=== PATIENT | female | born 1980 | race Caucasian/White ===

== ENCOUNTER 2023-05-28 13:46 | Outpatient (CLI) | payer OTHER | END 2023-05-28 13:47 | disposition home or self-care (01) | LOC: BICMAMMO 13:46 | PROVIDERS: ATTEND Specialist | DX: N63.10 Unspecified lump in the right breast, unspecified quadrant (principal); N63.20 Unspecified lump in the left breast, unspecified quadrant | CPT/HCPCS: 77066; G0279 ==

== ENCOUNTER 2024-07-06 12:32 | Outpatient (CLI) | payer BC | END 2024-07-06 12:33 | disposition home or self-care (01) | LOC: BICMAMMO 12:32 | PROVIDERS: ATTEND Specialist | DX: Z12.31 Encounter for screening mammogram for malignant neoplasm of breast (principal); N64.89 Other specified disorders of breast; Z80.3 Family history of malignant neoplasm of breast | CPT/HCPCS: 77063; 77067 ==

== ENCOUNTER → 2024-07-25 | Day surgery (SDC) | payer BC | LOC: MAMMO 06:45 | PROVIDERS: ATTEND Specialist | PROC: 0H9U3ZX Drainage of Left Breast, Percutaneous Approach, Diagnostic (ICD-10-PCS; principal; 2024-07-25) | DX: N60.32 Fibrosclerosis of left breast (principal); N64.89 Other specified disorders of breast | CPT/HCPCS: 19081; 76098; 88305; A4648 ==

== ENCOUNTER 2025-01-19 13:36 | Outpatient (CLI) | payer BC | END 2025-01-19 13:37 | disposition home or self-care (01) | LOC: BICMAMMO 13:36 | PROVIDERS: ATTEND Specialist | DX: R92.8 Other abnormal and inconclusive findings on diagnostic imaging of breast (principal) | CPT/HCPCS: G0279 ==

== ENCOUNTER 2025-07-24 12:31 | Outpatient (CLI) | payer BC | END 2025-07-24 12:32 | disposition home or self-care (01) | LOC: CT 12:31 | PROVIDERS: ATTEND Specialist | DX: J18.0 Bronchopneumonia, unspecified organism (principal) | CPT/HCPCS: 71260 ==

== ENCOUNTER 2025-08-03 08:39 | Day surgery (SDC) | payer BC ==
[2025-08-02 16:33] VITALS: BMI 38.5
[2025-08-03] MEDS ORDERED: fentaNYL PF 100 MCG/2 ML SYRINGE ONE (09:42)
[2025-08-03] MEDS ORDERED: PROPOFOL 20 ML ONE (09:42)
[2025-08-03] MEDS ORDERED: GLYCOPYRROLATE/PF 0.2 MG/ML VIAL ONE (09:43)
[2025-08-03] MEDS ORDERED: SUCCINYLCHOLINE/SOD CL,ISO/PF 200 MG/10 ML SYRINGE FS ONE (09:44)
[2025-08-03] MEDS ORDERED: Lidocaine 4% PF 5 ML AMP ONE (09:58)
[2025-08-03] MEDS ORDERED: Ondansetron PF 4 MG/2 ML Vial ONE (10:47)
[2025-08-03] MEDS ORDERED: HYDROcodone/Acetaminophen 5/325 mg Tablet ONE (14:13)
== END 2025-08-03 14:45 | disposition home or self-care (01) ==
LOC: SDC 08:39
PROVIDERS: ATTEND Internal Medicine
DX: R91.1 Solitary pulmonary nodule (principal); I10 Essential (primary) hypertension; F17.200 Nicotine dependence, unspecified, uncomplicated; Z79.899 Other long term (current) drug therapy; Z91.048 Other nonmedicinal substance allergy status; Z88.8 Allergy status to other drugs, medicaments and biological substances
CPT/HCPCS: 87070; 87102; 87116; 87205; 87206; 88104; 88112; 88305; 88341; 88342; 93005; 93010; J1100; J2250; J2704; J3490

== ENCOUNTER 2025-08-23 14:25 | Outpatient (CLI) | payer BC | END 2025-08-23 14:26 | disposition home or self-care (01) | LOC: SCSMRI 14:25 | PROVIDERS: ATTEND Internal Medicine Hematology & Oncology | DX: C34.82 Malignant neoplasm of overlapping sites of left bronchus and lung (principal) | CPT/HCPCS: 70553; 76376 ==

== ENCOUNTER 2025-08-27 08:55 | Emergency (ER) | payer BC ==
[2025-08-27] MEDS ORDERED: Iopamidol-370 76% 500 ML MDV (1 ML CHARGE) ONE (09:30)
[2025-08-27] MEDS ORDERED: Ondansetron PF 4 MG/2 ML Vial ONE (10:12)
[2025-08-27 10:14] LABS: #Basophils 0.06 10x3/uL (0.0-0.2); #Eosinophils 0.08 10x3/uL (0.0-0.7); #Monocytes 0.52 10x3/uL (0.11-0.59); #Neutrophils 10.39 10x3/uL (1.40-6.50); %Basophils 0.5 % (0.0-1.0); %Eosinophils 0.6 % (0.0-10.0); %Lymphocytes 14.6 % (21.0-51.0); %Monocytes 4.0 % (0.0-10.0); %Neutrophils 80.0 % (42.0-75.0); Hematocrit 40.6 % (36.0-47.0); Hemoglobin 13.7 g/dL (12.0-16.0); Mean Corpuscular Hemoglobin 29.0 pg (27.0-31.0); Mean Corpuscular Volume 85.8 fL (78.0-98.0); Platelet Count 276 10x3/uL (130-400); Red Blood Cell (RBC) Count 4.73 mill/uL (4.20-5.40); White Blood Cell (WBC) Count 12.99 10x3/uL (4.8-10.8)
[2025-08-27 10:31] LABS: ALT (SGPT) 14 U/L (Less than 34); AST (SGOT) 18 U/L (11-34); Albumin 3.8 g/dL (3.1-4.5); Alkaline Phosphatase 78 U/L (40-110); Anion Gap 13 mmol/L (10-20); BUN (Urea Nitrogen) 12 mg/dL (7.0-18.7); Bilirubin, Total 0.4 mg/dL (0.3-1.2); Calc. Creatinine Clearance 0 mL/min (70-130); Calcium 9.0 mg/dL (7.8-10.44); Carbon Dioxide 24 mmol/L (22-29); Chloride 104 mmol/L (98-107); Globulin 2.7 g/dL (2.4-3.5); Glucose 108 mg/dL (70-105); Lipase 18 U/L (8-78); Potassium 3.7 mmol/L (3.5-5.1); Sodium 137 mmol/L (136-145)
[2025-08-27 11:19] LABS: Bacteria/HPF None Seen HPF (None Seen); CAUTI Indications for Culture Dysuria,urgency,freq; Glucose, Urine (Dipstick) Normal (Negative); Leukocyte Negative Leu/uL (Negative); Protein, Urine (Dipstick) Negative (Neg-Trace); RBC/HPF 0-3 HPF (0-3); Specific Gravity, Urine 1.010 (1.002-1.036); Urine Culture Reflex No No; WBC/HPF 0-3 HPF (0-3)
[2025-08-27] MEDS ORDERED: Mineral Oil ENEMA ONE (12:12)
[2025-08-27] MEDS ORDERED: Fleet Saline Enema 133 ML BOT ONE (12:13)
[2025-08-27] MEDS ORDERED: Lidocaine/Transparent Dressing 1 EACH KIT ONE (13:09)
== END 2025-08-27 13:15 | disposition home or self-care (01) ==
LOC: ERS 08:55
DX: K59.00 Constipation, unspecified (principal); I10 Essential (primary) hypertension; Z87.891 Personal history of nicotine dependence; Z79.899 Other long term (current) drug therapy
CPT/HCPCS: 74177; 80053; 81001; 83690; 85025; 96374; Q9967

== ENCOUNTER 2025-09-01 12:57 | Outpatient (CLI) | payer BC | END 2025-09-01 12:58 | disposition home or self-care (01) | LOC: LABBT 12:57 | PROVIDERS: ATTEND Student in an Organized Health Care Education/Training Program | DX: Z01.818 Encounter for other preprocedural examination (principal); C34.12 Malignant neoplasm of upper lobe, left bronchus or lung | CPT/HCPCS: 71046; 93005; 93010 ==

== ENCOUNTER 2025-09-02 22:26 | Emergency (ER) | payer BC | END 2025-09-03 01:10 | disposition home or self-care (01) | LOC: ERS 22:26 | DX: S93.134A Subluxation of interphalangeal joint of right lesser toe(s), initial encounter (principal); I10 Essential (primary) hypertension; Z87.891 Personal history of nicotine dependence; W22.8XXA Striking against or struck by other objects, initial encounter | CPT/HCPCS: 28660 ==

== ENCOUNTER 2025-09-25 13:28 | Outpatient (CLI) | payer BC | END 2025-09-25 13:29 | disposition home or self-care (01) | LOC: RAD 13:28 | PROVIDERS: ATTEND Student in an Organized Health Care Education/Training Program | DX: C34.12 Malignant neoplasm of upper lobe, left bronchus or lung (principal); J98.11 Atelectasis; Z98.890 Other specified postprocedural states | CPT/HCPCS: 71046 ==